=== PATIENT | female | born 1995 | race Two or more races ===

== ENCOUNTER 2019-08-01 13:54 | Emergency (ER) | payer SELFPAY ==
[~2019-08-01] VITALS: Ht 162.6 cm; Wt 54.4 kg
[2019-08-01] MEDS ORDERED: SODIUM CHLORIDE 0.9% 1,000 ML IV ONE (14:45)
[2019-08-01 18:24] VITALS: BP 107/68
== END 2019-08-01 18:35 | disposition home or self-care (01) ==
LOC: EDBD 13:54 → ER 13:54
DX: T40.1X1A Poisoning by heroin, accidental (unintentional), initial encounter (principal); R05 Cough; F12.10 Cannabis abuse, uncomplicated
CPT/HCPCS: 99283; J7030

== ENCOUNTER 2020-07-14 08:54 | Emergency (ER) | payer OTHER ==
[~2020-07-14] VITALS: Ht 162.6 cm; Wt 54.4 kg
[2020-07-14] MEDS ORDERED: NALOXONE HCL 1MG/ML 2ML SYRINGE IV ONE ×2 (08:55→09:15)
[2020-07-14] MEDS ORDERED: SODIUM BICARBONATE 8.4 % INJ 50ML VIAL IV ONE (08:55)
[2020-07-14] MEDS ORDERED: ONDANSETRON HCL 4 MG/2 ML VIAL ONE (09:02)
[2020-07-14] MEDS ORDERED: SODIUM CHLORIDE 0.9% 1,000 ML IV ONE (09:15)
[2020-07-14] MEDS ORDERED: ONDANSETRON HCL 4 MG/2 ML VIAL IV ONE (09:15)
[2020-07-14 09:16] VITALS: BP 133/70
[2020-07-14 09:58] LABS: Basophils # (auto) 0 10 ^3/uL (0-0.2); Eosinophils # (auto) 0.1 10 ^3/uL (0-0.8); Hemoglobin 13.4 g/dL (12.2-16.2); Monocytes # (auto) 0.3 10 ^3/uL (0-1.3); Neutrophils # (auto) 2.9 10 ^3/uL (1.6-8.6); Nucleated Red Blood Cells % 0.2 %
[2020-07-14 09:59] LABS: Basophils % (auto) 0.5 % (0.0-2.0); Eosinophils % (auto) 2.6 % (0.0-7.0); Hematocrit 41.6 % (36.0-46.0); Lymphocytes % (auto) 37.1 % (10.0-50.0); Mean Corpuscular Hemoglobin 25.3 pg (28.0-32.0); Mean Corpuscular Hgb Conc. 32.1 g/dL (32.0-36.0); Neutrophils % (auto) 53.8 % (37.0-80.0); Platelet Count (auto) 230 10^3/uL (140-450); Red Blood Cells 5.27 10^6/uL (4.0-5.20); Red Cell Distribution Width 15.8 % (11.8-14.3); White Blood Cell 5.3 10^3/uL (4.4-10.8)
[2020-07-14 10:15] LABS: Salicylate < 1.7 mg/dL (2.8-20.0)
[2020-07-14 10:16] LABS: Albumin 3.7 g/dL (3.4-5.0); Anion Gap 7 (5-15); Blood Alcohol < 3.0 mg/dL (0-5); Blood Urea Nitrogen 13 mg/dL (7-18); Carbon Dioxide 28 mmol/L (21-32); Chloride 106 mmol/L (98-107); Glucose 100 mg/dL (74-106); Potassium 3.7 mmol/L (3.5-5.1); Sodium 141 mmol/L (136-145)
[2020-07-14 10:17] LABS: Alanine Aminotransferase 27 U/L (13-56); Alkaline Phosphatase 86 U/L (45-117); Aspartate Aminotransferase 25 U/L (15-37); BUN/Creatinine Ratio 15.3; Bilirubin, Total 0.4 mg/dL (0.2-1.0); GFR African American 106 mL/min; GFR Non-African American 87 mL/min
[2020-07-14 10:24] LABS: Acetaminophen < 2.0 ug/mL (10-30)
[2020-07-14 11:08] LABS: Urine Bacteria FEW /hpf (None Seen); Urine Blood 3+ /uL (Negative); Urine Mucus FEW (None Seen); Urine Specific Gravity 1.032 (1.001-1.035); Urine WBC 88 /hpf (0 - 5); Urine WBC Clumps PRESENT /hpf (None Seen)
[2020-07-14 11:17] LABS: Amphetamine Screen, Urine POSITIVE (NEGATIVE); Barbiturate Scree,Urine NEGATIVE (NEGATIVE); Benzodiazephine Screen, Urine NEGATIVE (NEGATIVE); Cannabinoid Screen, Urine NEGATIVE (NEGATIVE); Opiate Scree,Urine NEGATIVE (NEGATIVE); Phencyclidine Screen, Urine NEGATIVE (NEGATIVE)
[2020-07-14 11:24] LABS: Cocaine Screen, Urine NEGATIVE (NEGATIVE)
== END 2020-07-14 15:32 | disposition home or self-care (01) ==
LOC: ER 08:54 → EDUNIT# 08:54 → ER 15:32
DX: R09.2 Respiratory arrest (principal); N39.0 Urinary tract infection, site not specified; F15.10 Other stimulant abuse, uncomplicated; Z32.02 Encounter for pregnancy test, result negative
CPT/HCPCS: 36415; 80053; 80307; 80320; 80329; 81001; 81025; 85025; 96361; 96374; 96375; 99284; J2310; J2405